=== PATIENT | male | born 1955 | race Caucasian/White ===

== ENCOUNTER 2025-06-26 12:34 | Inpatient (IN) | payer MEDICARE ==
[~2025-06-26] VITALS: Ht 170.1 cm; Wt 79.4 kg
[2025-06-26 12:49] VITALS: BP 130/65
[2025-06-26] MEDS ORDERED: LOMOTIL 2.5-0.1 EACH PO (12:51)
[2025-06-26] MEDS ORDERED: ROBINUL PO (12:52)
[2025-06-26 13:06] LABS: BASO # 0.0 10*3/uL (0.0-0.1); BASO % 0.6 % (0.0-1.0); EOS # 0.2 10*3/uL (0.0-0.4); EOS % 2.7 % (1.0-4.0); MEAN CELL VOLUME 96.4 fl (80.0-94.0); MEAN CORPUSCULAR HGB 31.0 pg (27.0-31.0); MEAN PLATELET VOLUME 9.6 fl (9.6-12.3); MONO # 0.5 10*3/uL (0.1-1.0); MONO % 7.9 % (3.0-9.0); NEUT # 4.4 10*3/uL (2.3-7.9); NEUT % 69.9 % (47.0-73.0); NUCLEATED RED BLOOD CELL 0.0 % (0.0-0.0); NUCLEATED RED BLOOD CELL 0.0 10*3/uL (0.0-0.0); PLATELET COUNT AUTOMATED 220 10*3/uL (130-400); RED CELL DISTRI WIDTH 12.9 % (0-14.5)
[2025-06-26 13:26] LABS: BUN 14 mg/dl (9-23)
[2025-06-26 13:38] LABS: ACT PARTIAL THROMBO TIME 24.6 SECONDS (20.0-32.1)
[2025-06-26] MEDS ORDERED: HEPARIN SODIUM 250 ML IV SCH (13:55)
[2025-06-26 14:20] VITALS: BP 139/85
[2025-06-26] MEDS ORDERED: Acetaminophen/Hydrocodone 5 MG/325 MG TABLET PO PRN (14:40)
[2025-06-26] MEDS ORDERED: Ondansetron Hydrochloride 4 MG/2 ML VIAL IV PRN (14:40)
[2025-06-26] MEDS ORDERED: BISACODYL 10 MG SUPP R PRN (14:40)
[2025-06-26] MEDS ORDERED: ACETAMINOPHEN 325 MG TAB PO PRN (14:40)
[2025-06-26] MEDS ORDERED: BISACODYL 5 MG TAB PO PRN (14:40)
[2025-06-26] MEDS ORDERED: ACETAMINOPHEN 650 MG SUPP R PRN (14:40)
[2025-06-26] MEDS ORDERED: METOPROLOL SUCCINATE XR 25 MG TAB PO SCH (14:50)
[2025-06-26 16:00] VITALS: BP 139/85
[2025-06-26] MEDS ORDERED: APIXABAN 5 MG TAB PO SCH (18:00)
[2025-06-26 20:00] VITALS: BP 126/70
[2025-06-27] VITALS: BP 115/74
[2025-06-27 06:57] LABS: BUN 9 mg/dl (9-23); FREE T4 1.12 ng/dl (0.89-1.76); LDL CHOLESTEROL 92 mg/dL (9-159); SGPT/ALT 8 U/L (5-49)
[2025-06-27 07:57] LABS: BASO # 0.0 10*3/uL (0.0-0.1); BASO % 0.5 % (0.0-1.0); EOS # 0.1 10*3/uL (0.0-0.4); EOS % 2.5 % (1.0-4.0); MEAN CELL VOLUME 97.0 fl (80.0-94.0); MEAN CORPUSCULAR HGB 31.2 pg (27.0-31.0); MEAN PLATELET VOLUME 9.7 fl (9.6-12.3); MONO # 0.4 10*3/uL (0.1-1.0); MONO % 6.5 % (3.0-9.0); NEUT # 4.3 10*3/uL (2.3-7.9); NEUT % 76.2 % (47.0-73.0); NUCLEATED RED BLOOD CELL 0.0 % (0.0-0.0); NUCLEATED RED BLOOD CELL 0.0 10*3/uL (0.0-0.0); PLATELET COUNT AUTOMATED 196 10*3/uL (130-400); RED CELL DISTRI WIDTH 13.0 % (0-14.5)
[2025-06-27 08:00] VITALS: BP 132/79
[2025-06-27 12:00] VITALS: BP 136/82
[2025-06-27 16:00] VITALS: BP 107/75
[2025-06-27 20:00] VITALS: BP 138/71
[2025-06-28] VITALS: BP 127/70
[2025-06-28 08:00] VITALS: BP 108/58
[2025-06-28] MEDS ORDERED: METOPROLOL SUCC50 M1 PO (08:56)
[2025-06-28] MEDS ORDERED: ELIQUIS5 M1 PO (08:56)
[2025-06-28] MEDS ORDERED: METOPROLOL SUCCINATE XR 50 MG TAB PO SCH (10:00)
== END 2025-06-28 10:45 | disposition home or self-care (01) | DRG 310 ==
LOC: ED 12:34 → 5E 13:57 → EDHOLD 13:57 → 5E 14:04
PROVIDERS: Emergency Medicine; Student in an Organized Health Care Education/Training Program; ADMIT Student in an Organized Health Care Education/Training Program; ATTEND Student in an Organized Health Care Education/Training Program
DX: I48.0 Paroxysmal atrial fibrillation (principal); D64.9 Anemia, unspecified; R73.9 Hyperglycemia, unspecified; I34.0 Nonrheumatic mitral (valve) insufficiency; E87.8 Other disorders of electrolyte and fluid balance, not elsewhere classified; Z85.46 Personal history of malignant neoplasm of prostate; Z80.0 Family history of malignant neoplasm of digestive organs; Z82.3 Family history of stroke; Z81.8 Family history of other mental and behavioral disorders; M15.0 Primary generalized (osteo)arthritis